=== PATIENT | female | born 1990 | race Caucasian/White ===

== ENCOUNTER → 2017-07-08 | Day surgery (SDC) | payer OTHER ==
[2017-07-02 14:38] VITALS: BMI 24.9
[~2017-07-08] MED LIST: LACTATED RINGERS 1,000 ML IV ONE; LACTATED RINGERS 1,000 ML IV SCH; LIDOCAINE 1% 20 ML VIAL (10MG/ML) FOR IV START INTRADERMA PRN; PROPOFOL 10 MG/ML 20 ML VIAL IV ONE
[2017-07-08 10:01] VITALS: RESP 16; TEMP 98.9
--- NOTE | 2017-07-08 10:41 | P.GSHP ---
History of Present Illness H&P Date: 07/08/17 Chief Complaint: Epigastric pain, rectal bleeding This a 26-year-old female referred from Dr. Cohen. Patient presents today for EGD and colonoscopy. She's had issues with epigastric pain and some intermittent rectal bleeding. Past Medical History Additional Past Medical History / Comment(s): HAS HAD 3 EPISODES OF BLOOD IN STOOL, ABD. PAIN, BLOATING, History of Any Multi-Drug Resistant Organisms: None Reported Past Surgical History: No Surgical Hx Reported Additional Past Anesthesia/Blood Transfusion Reaction / Comment(s): NO PRIOR SX HX Smoking Status: Never smoker - Past Family History Mother Family Medical History: No Reported History Medications and Allergies Home Medications Medication Instructions Recorded Confirmed Type No Known Home Medications [No 07/02/17 07/08/17 History Known Home Medications] Allergies Allergy/AdvReac Type Severity Reaction Status Date / Time No Known Allergies Allergy Verified 07/08/17 09:46 Surgical - Exam Vital Signs Temp Pulse Resp BP Pulse Ox 98.9 F 84 16 123/81 100 07/08/17 09:56 07/08/17 09:56 07/08/17 09:56 07/08/17 09:56 07/08/17 09:56 - General well developed, no distress - Eyes PERRL - ENT normal pinna - Neck no masses - Respiratory normal expansion - Cardiovascular Rhythm: regular - Abdomen Abdomen: soft, non tender Assessment and Plan Assessment: Epigastric pain, rectal bleeding. We'll perform EGD and colonoscopy.
--- NOTE | 2017-07-08 11:03 | P.OP ---
Date of Procedure: 07/08/17 Preoperative Diagnosis: Epigastric plane GI bleed Postoperative Diagnosis: Mild antral gastritis Normal colonoscopy Procedure(s) Performed: EGD Colonoscopy Anesthesia: MAC Surgeon: Catracho Oconnell Pathology: other (Antrum, esophagus) Condition: stable Disposition: PACU Description of Procedure: PROCEDURE: The patient was placed on the endoscopy table in the lateral position. Digital rectal examination was performed which revealed no abnormalities. . Flexible colonoscope was then placed in the patient's anus and passed throughout the entire colon. The ileocecal valve was visualized. The cecum, ascending, transverse, descending and sigmoid colon were normal. The rectum was normal as well. There were no masses, polyps or diverticula noted in the entire colon. Next, the gastroscope placed oropharynx passed in the esophagus and into the stomach. The scope was then placed through the pylorus. First and second portion of the duodenum appeared normal. Scope was then brought back the antrum and this appeared mildly inflamed. A biopsies performed. The scope was unretroflexed and remainder stomach appeared normal. There was no significant hiatal hernia. The GE junction was at 40 cm. The distal esophagus appeared mildly inflamed a biopsies performed. The proximal esophagus appeared normal. Scope was withdrawn for patient.
[2017-07-08 11:40] VITALS: BP 107/70; PULSE 65
--- NOTE | 2017-07-08 17:25 | NM ---
EXAMINATION TYPE: NM hepatobiliary w EF DATE OF EXAM: 07/08/2017 COMPARISON: NONE HISTORY: TECHNIQUE: After the intravenous administration of 4.99 mCi Tc 99m Mebrofenin hepatobiliary scintigra phy is performed. Immediate images post injection. FINDINGS: There is prompt uptake of the tracer by the liver that has normal size and contour. There is tracer i n the gallbladder at 15 minutes and in the small bowel at 30 minutes. I see no focal liver defect. Tr acers mostly cleared from the liver at 60 minutes. The poststimulation images show gallbladder ejection fraction of 65% which is normal. IMPRESSION: Normal hepatobiliary scan. Normal gallbladder ejection fraction.
== END | disposition home or self-care (01) ==
LOC: ORWHC2ENDO 09:23
PROVIDERS: ATTEND Surgery
DX: K29.50 Unspecified chronic gastritis without bleeding (principal); K20.9 Esophagitis, unspecified
CPT/HCPCS: 81025; 88305; 88342; 78226; 45378; 43239; A9537; J2704